=== PATIENT | male | born 1960 | race African-American/Black ===

== ENCOUNTER 2024-10-23 11:04 | Outpatient (AMB) | payer OTHER, SELFPAY ==
--- NOTE | 2024-10-23 11:06 | A.OFFVIS_ITS ---
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 The patient reports a history of lumbar disc herniation, which was identified following an incident at work involving bending and lifting in 2022. An MRI confirmed a disc bulge on the left side, leading to significant pain and inability to work. The patient has been experiencing chronic pain since the injury, which has been managed with physical therapy and pain management injections. However, the patient experienced an allergic reaction to the injections, characterized by itching, muscle contractions, and skin changes. The patient has been advised against further injections due to these adverse effects. The patient also has a history of arthritis, which contributes to his chronic pain. He has been prescribed various medications, including muscle relaxants and topical gels, to manage his symptoms. The patient reports that these medications provide some relief, although they cause dizziness, particularly when taken during the day. In addition to his musculoskeletal issues, the patient has a history of diabetes mellitus and hypertension. He is not currently on insulin therapy for diabetes. - Onset: Pain began following a work-related injury in 2022. - Quality: Described as severe and persistent. - Location: Primarily in the left thoracolumbar region with occasional radiation to the ribs. - Exacerbating factors: Bending, lifting, and sudden movements worsen the pain. - Relieving factors: Use of muscle relaxants and topical gels provides some relief. - Interference: Pain affects daily activities and ability to work. - Affect: Pain significantly impacts the patient's mood and quality of life. - Analgesia: Previously managed with muscle relaxants and topical gels but patient has run out of these medications; previous injections caused adverse reactions. - Adverse Effects: Dizziness from medications, allergic reaction to injections. - Activities of Daily Living: Pain limits ability to perform work and daily tasks. - Aberrant Drug Related Behaviors: No evidence of medication misuse or abuse reported. [facility] Medical History (Updated 10/23/24 @ 12:45 by Julia Martinez, PHONE MANAGER, RECRUITMENT COORDINATOR) Diabetes Hypertension Review of Systems Const Details: - Musculoskeletal: Reports chronic lumbar pain, exacerbated by movement. - Dermatological: Reports skin changes and itching following injections. - Neurological: Reports dizziness associated with medication use. Physical Exam Vital Signs: Last Vital Signs Pulse 67 10/23/24 11:09 Resp 16 10/23/24 11:09 BP 178/94 H 10/23/24 11:09 Pulse Ox 97 10/23/24 11:09 Oxygen Delivery Method Room Air 10/23/24 11:09 BMI result Body Mass Index 37.7 General: awake, alert, oriented. Answers questions appropriately. Fully engaged in examination. Skin: warm, dry, intact HEENT: Normocephalic. Hearing intact. Cardiac: External chest normal in appearance. Respiratory: No cough, audible wheezing or stridor. Abdomen: without gross distension. MS: No obvious swelling or deformities. Able to stand on bilateral tiptoes and bilateral heels.? Able to transition from sit to stand unassisted. Ambulates with bilaterally normal heel strike and toe off Tenderness in left thoracolumbar region, pain on forward bending, discomfort on twisting, and difficulty lifting objects. SLR negative bilaterally Nontender over bilateral PSIS Bilateral lower extremity strength 5/5 Neurological: Oriented to person, place, time and situation. Thought process intact. No gait abnormalities appreciated. Psychiatric: Appropriate mood and affect. Good judgment and insight. Results Reviewed Results Reviewed: Per patient's referral MRI from [place] showed small diffuse disc bulge at L4-5. Bilateral facet arthropathy L4-5 L5-S1. Records have been requested for review. Assessment & Plan Assessment & Plan (1) Degenerative disc disease, lumbar: Code(s): M51.369 - Other intervertebral disc degeneration, lumbar region without mention of lumbar back pain or lower extremity pain Category: Medical (2) L4-L5 disc bulge: Code(s): M51.369 - Other intervertebral disc degeneration, lumbar region without mention of lumbar back pain or lower extremity pain Category: Medical Plan The plan involves obtaining full medical records, including MRI results from [facility] and records from [facility], to better understand the patient's condition and previous treatments. The patient will be prescribed a lower dose of metocarbamol to reduce dizziness, and diclofenac gel will be continued for topical pain relief. Further injections are not recommended due to previous allergic reactions, and alternative pain management strategies will be explored. The patient is advised to avoid activities that exacerbate pain, such as heavy lifting and sudden movements. Follow-up appointments will be scheduled to monitor the patient's response to the adjusted medication regimen and to discuss further management options. I discussed with the patient the importance of obtaining complete medical records to assess his condition thoroughly. We reviewed the adverse effects of previous injections and agreed that further injections are not advisable. I explained the rationale for adjusting his medication regimen to minimize dizziness and enhance pain relief. We also discussed the need to avoid activities that could worsen his pain and the plan for follow-up appointments to evaluate his progress. Patient was informed and verbally consented to the use of an ambient scribe for clinic note documentation during this visit. Medications: New diclofenac sodium 1% (Arthritis Pain (diclofenac)) apply to single area of back twice daily as needed 4 grams topical BID 100 grams 3RF acetaminophen ER 650 mg PO Q12H PRN 60 tabs 1RF pain methocarbamol No driving while taking this medication. Do no take with alcohol or other C NS Depressants 500 mg PO TID PRN 90 tabs 1RF muscle spasm Patient Instructions: - Avoid heavy lifting and sudden movements to prevent worsening of pain. - Use diclofenac gel as directed for pain relief. - Take metocarbamol at the prescribed lower dose to reduce dizziness. - Schedule follow-up appointments to monitor progress and adjust treatment as needed. Coding Level of Care Code New Pt Level 4 (52911) Complex EM visit Add On G2211 Diagnoses Degenerative disc disease, lumbar M51.369 L4-L5 disc bulge M51.369
[2024-10-23 11:09] VITALS: BP 178/94; PULSE 67; RESP 16; O2SAT 97; BMI 37.7
--- OUTSIDE RECORDS SUMMARY | 2024-10-23 11:29 | XMS_ITS | Clinical Summary ---
Author Organization [facility] Address [address] [place] [address] Phone Care Team Providers Care Forest Engineer Name Role Phone Physician, Pcp Unknown Primary Care Provider Guerline vailable Allergies No known active allergies Medications dexAMETHasone (DECADRON) 4 mg tablet Take 1 tablet (4 mg total) by mouth 2 (two) times a day for 4 days. 8 each 5 Active acetaminophen (TYLENOL 8 HOUR) 650 mg 8 hr tablet Take 1 tablet (650 mg total) by mouth 3 times daily. 4 Active amLODIPine (NORVASC) 10 mg tablet Take 1 tablet (10 mg total) by mouth daily. 4 Active blood-glucose meter kit 1 each daily. 4 Active cetirizine (ZyrTEC) 10 mg tablet Take 1 tablet (10 mg total) by mouth 1 (one) time each day. 4 Active ezetimibe (ZETIA) 10 mg tablet Take 1 tablet (10 mg total) by mouth 1 (one) time each day. Active omeprazole (PriLOSEC) [address] capsule TAKE 1 CAPSULE BY MOUTH EVERY DAY IN THE MORNING BEFORE BREAKFAST STRENGTH: 20 MG Active rosuvastatin (CRESTOR) 10 mg tablet Take 1 tablet (10 mg total) by mouth 1 (one) time each day. 4 Active Encounters Date Type Department Care Team Description 09/17/2024 11:00 AM EDT Consult Orthopedic [facility] [place] [address] [place] [address] Leonor Tavares PA Subacromial bursitis of left shoulder joint (Primary Dx); Left shoulder pain; Rotator cuff tendinitis, left from Last 3 Months Social History Tobacco Use Types Packs/Day Years Used Date Smoking Tobacco: Never Assessed Sex and Gender Information Value Date Recorded Sex Assigned at Not on file Legal Sex Male 3:48 PM EST Gender Identity Not on file Sexual Orientation Not on file Last Filed Vital Signs Vital Sign Reading Time Taken Comments Blood Pressure 153/100 06/26/2024 12:22 PM EST Pulse 63 06/26/2024 12:22 PM EST Temperature 36.5 C (97.7 F) 06/26/2024 12:22 PM EST Respiratory Rate 16 09/17/2024 10:45 AM EDT Oxygen Saturation 99% 06/26/2024 12:22 PM EST Inhaled Oxygen Concentration - - Weight 110 kg (242 lb) 09/17/2024 10:45 AM EDT Height 170.2 cm (5' 7 ) 09/17/2024 10:45 AM EDT Body Mass Index 37.9 09/17/2024 10:45 AM EDT Plan of Treatment Health Maintenance Due Date Last Done Comments Diabetes: Annual Foot Exam 01/07/1972 Diabetes: Annual Retina Eye Exam 01/07/1972 RSV Immunization Adult Patients (1 - Risk 60-74 years 1-dose series) 2022 Colorectal Cancer Screening: Colonoscopy 07/12/2023 Hepatitis C Screening 07/12/2023 Social Influencers of Health Screening 07/12/2023 COVID-19 Vaccine ( season) 2024 05/04/2021, 09/21/2020, 08/31/2020 Diabetes: Blood Sugar Control Test (HGBA1C) 09/08/2024 03/11/2024 Diabetes: Annual Urine Albumin-Creatinine Ratio (uACR) 10/20/2024 10/21/2023 Influenza Vaccine (Season Ended) 2025 03/15/2022, 05/04/2021, 03/18/2020, Additional history exists Diabetes: Annual GFR (Glomerular Filtration Rate) 06/26/2025 06/26/2024, 03/11/2024 Hypertension/CHF/CAD Annual BMP Blood Test 06/26/2025 06/26/2024, 03/11/2024 Depression Screening 07/27/2025 07/27/2024 Cholesterol Screening (Lipid Panel) 03/11/2029 03/11/2024, 03/11/2024, 10/21/2023, Additional history exists DTaP,Tdap,and Td Vaccines (2 - Td or Tdap) 05/28/2029 05/28/2019 HIV Screening Completed 10/17/2018 Zoster Vaccines Completed 03/18/2020, 05/28/2019 Pneumococcal Vaccine: 50+ Years Completed 03/22/2023 Pneumococcal Vaccine: Pediatrics (0 to 5 Years) and At-Risk Patients (6 to 64 Years) Completed 03/22/2023 HIB Vaccines Aged Out No longer eligi ble based on patient's age to complete this topic HPV Vaccines Aged Out No longer eligi ble based on patient's age to complete this topic Hepatitis A Vaccines Aged Out No long er eligible based on patient's age to complete this topic Hepatitis B Vaccines Aged Out No long er eligible based on patient's age to complete this topic IPV Vaccines Aged Out No longer eligi ble based on patient's age to complete this topic MMR Vaccines Aged Out No longer eligi ble based on patient's age to complete this topic Meningococcal ACWY Vaccine Aged Out N o longer eligible based on patient's age to complete this topic Meningococcal B Vaccine Aged Out No l onger eligible based on patient's age to complete this topic RSV Immunization Patients Under 20 months Aged Out No longer eligible based on patient's age to complete this topic Varicella Vaccines Aged Out No longer eligible based on patient's age to complete this topic Procedures Procedure Name Priority Date/Time Associated Diagnosis Comments COMPREHENSIVE METABOLIC PANEL STAT 06/26/2024 7:32 AM EST from Last 3 Months or Most Recently Relevant to Health Maintenance Results * (ABNORMAL) Comprehensive metabolic panel (06/26/2024 7:32 AM EST) Sodium 139 133 - 145 mmol/L LAB CHEMISTRY METHOD 06/26/2024 8:17 AM EST [facility] Potassium 4.6 3.5 - 5.5 mmol/L LAB CHEMISTRY METHOD 06/26/2024 8:17 AM EST [facility] Chloride 105 96 - 110 mmol/L LAB CHEMISTRY METHOD 06/26/2024 8:17 AM [facility] CO2 27 21 - 32 mmol/L LAB CHEMISTRY METHOD 06/26/2024 8:17 AM [facility] Anion Gap 7 3 - 11 LAB CHEMISTRY METHOD 06/26/2024 8:17 AM [facility] Glucose 128(H) 70 - 100 mg/dL LAB CHEMISTRY METHOD 06/26/2024 8:17 AM [facility] BUN 12 5 - 25 mg/dL LAB CHEMISTRY METHOD 06/26/2024 8:17 AM [facility] Creatinine 1.49(H) 0.70 - 1.30 mg/dL LAB CHEMISTRY METHOD 06/26/2024 8:17 AM [facility] eGFR 53(L) >=60 mL/min/1. 73m2 LAB CHEMISTRY METHOD 06/26/2024 8:17 AM [facility] Comment:Calculation based on the Chronic Kidney Disease Epidemiology Collaboration (CKD-EPI) equation refit without adjustment for race. BUN/Creatinine Ratio 8.1 LAB CHEMISTRY METHOD 06/26/2024 8:17 AM [facility] Calcium 9.3 8.5 - 10.5 mg/dL LAB CHEMISTRY METHOD 06/26/2024 8:17 AM [facility] AST (SGOT) 21 10 - 42 unit/L LAB CHEMISTRY METHOD 06/26/2024 8:17 AM [facility] ALT (SGPT) 37 10 - 60 unit/L LAB CHEMISTRY METHOD 06/26/2024 8:17 AM [facility] Alkaline Phosphatase 57 42 - 121 unit/L LAB CHEMISTRY METHOD 06/26/2024 8:17 AM [facility] Total Protein 7.7 6.0 - 8.0 g/dL LAB CHEMISTRY METHOD 06/26/2024 8:17 AM [facility] Albumin 4.1 3.2 - 5.0 g/dL LAB CHEMISTRY METHOD 06/26/2024 8:17 AM EST [facility] Total Bilirubin 0.6 0.0 - 1.4 mg/dL LAB CHEMISTRY METHOD 06/26/2024 8:17 AM EST [facility] Blood Venous blood specimen / Unknown Venipuncture / Unknown 06/26/2024 7:32 AM EST 06/26/2024 7:41 AM EST us Chase Griffin MD LAB BLOOD ORDERABLES Final Res ult [facility] [address] [place] [address], from Last 3 Months or Most Recently Relevant to Health Maintenance Insurance [facility] [employer] Care Teams Forest Engineer Relationship Specialty Start Date End Date Physician, Pcp Unknown PCP - General 06/26/24
== END 2024-10-23 12:03 | disposition home or self-care (01) ==
LOC: HO.PMC 11:05
PROVIDERS: PCP Physician Assistant; Referring Provider Physician Assistant; Visit Provider Registered Nurse Emergency
DX: M51.369 Other intervertebral disc degeneration, lumbar region without mention of lumbar back pain or lower extremity pain (principal)
CPT/HCPCS: 99204; G2211

== ENCOUNTER → 2024-10-23 11:04 | Outpatient (BNVA) | payer OTHER, SELFPAY | PROVIDERS: PCP Physician Assistant; Referring Provider Physician Assistant; Visit Provider Registered Nurse Emergency | DX: M51.369 Other intervertebral disc degeneration, lumbar region without mention of lumbar back pain or lower extremity pain (principal) | CPT/HCPCS: 99202 ==

== ENCOUNTER 2024-12-04 12:41 | Outpatient (AMB) | payer OTHER, SELFPAY ==
--- OUTSIDE RECORDS SUMMARY | 2024-12-04 12:43 | XMS_ITS | Clinical Summary ---
Author Organization [facility] Address [address] [place] [address] Phone Care Team Providers Care Compliance Specialist Name Role Phone Diana Sultana Primary Care Provider [phone] Allergies Active Allergy Reactions Criticality Noted Date Comments Lisinopril 11/08/2024 Unknown?? Medications dexAMETHasone (DECADRON) 4 mg tablet Take [...] 1 (one) time each day. 4 Active lidocaine (XYLOCAINE) 2 % solution Take 10 mL by mouth 3 (three) times a day if needed for mild pain or moderate pain for up to 10 doses. 100 mL Active Active Problems No known active problems Encounters Date Type Department Care Team Description 11/08/2024 3:56 PM EDT - 11/08/2024 8:00 PM EDT Emergency [place] [facility] Emergency [address] [place] [address] Shruti Keita MD Acute pharyngitis, unspecified etiology (Primary Dx); Odynophagia Discharge Disposition: Home or Self Care 09/17/2024 11:00 AM EDT Consult Orthopedic Surgery - [place] [address] [place] [address] Leonor Tavares PA Subacromial bursitis [...] on file Sexual Orientation Not on file Obstetrics History Last Filed Vital Signs Vital Sign Reading Time Taken Comments Blood Pressure 140/94 11/08/2024 3:19 PM EDT Pulse 78 11/08/2024 3:19 PM EDT Temperature 36.8 C (98.2 F) 11/08/2024 3:19 PM EDT Respiratory Rate 20 11/08/2024 3:19 PM EDT Oxygen Saturation 99% 06/26/2024 12:22 PM EST Inhaled Oxygen Concentration - - Weight 111 kg (244 lb) 11/08/2024 3:19 PM EDT Height 170.2 cm (5' 7 ) 11/08/2024 3:19 PM EDT Body Mass Index 38.22 11/08/2024 3:19 PM EDT Plan of Treatment Health Maintenance Due Date Last Done Comments Diabetes: Annual Foot Exam 01/07/1972 Diabetes: Annual Retina Eye Exam 01/07/1972 RSV Immunization Adult Patients (1 - Risk 60-74 years 1-dose series) 2022 Colorectal Cancer Screening: Colonoscopy 07/12/2023 Hepatitis C Screening 07/12/2023 Social Influencers of Health Screening 07/12/2023 COVID-19 Vaccine ( season) 2024 05/04/2021, 09/21/2020, 08/31/2020 Depression Screening 05/06/2024 Influenza Vaccine (#1) 2025 2, 05/04/2021, 03/18/2020, Additional history exists Diabetes: Blood Sugar Control Test (HGBA1C) 04/04/2025 10/02/2024, 03/11/2024 Diabetes: Annual Urine Albumin-Creatinine Ratio (uACR) 10/02/2025 10/02/2024, 10/21/2023 Diabetes: Annual GFR (Glomerular Filtration Rate) 11/08/2025 11/08/2024, 10/02/2024, 06/26/2024, Additional history exists Hypertension/CHF/CAD Annual BMP Blood Test 11/08/2025 11/08/2024, 10/02/2024, 06/26/2024, Additional history exists DTaP,Tdap,and Td Vaccines (2 - Td or Tdap) 05/28/2029 05/28/2019 Cholesterol Screening (Lipid Panel) 10/02/2029 10/02/2024, 03/11/2024, 03/11/2024, Additional history exists HIV Screening Completed 10/17/2018 Zoster Vaccines Completed 03/18/2020, 05/28/2019 Pneumococcal Vaccine: 50+ Years Completed 03/22/2023 HIB Vaccines Aged Out No [...] Procedure Name Priority Date/Time Associated Diagnosis Comments CT NECK SOFT TISSUE W CONTRAST STAT 11/08/2024 6:11 PM EDT CULTURE THROAT STAT 11/08/2024 4:48 PM EDT RAPID STREP A SCREEN STAT 11/08/2024 4:48 PM EDT CBC WITH AUTO DIFFERENTIAL STAT 11/08/2024 4:43 PM EDT BASIC METABOLIC PANEL STAT 11/08/2024 4:43 PM EDT CBC AND DIFFERENTIAL STAT 11/08/2024 4:43 PM EDT TRIIODOTHYRONINE TOTAL STAT 4:43 PM EDT THYROXINE FREE STAT 11/08/2024 4:43 PM EDT THYROID STIMULATING HORMONE STAT 11/08/2024 4:43 PM EDT from Last 3 Months Results * CT Neck Soft Tissue w Contrast (11/08/2024 6:11 PM EDT) Anatomical Region Laterality Modality Head and Neck Computed Tomogra phy 11/08/2024 7:00 PM EDT Impressions 11/08/2024 7:00 PM EDT 1. Nasopharyngeal edema and enhancement, likely inflammatory. No abscess. 2. Asymmetric fullness in the right base of the tongue. Recommend follow-up with ENT for direct visualization. 3. Left parotid gland is slightly larger than the right but otherwise within normal limits. This document has been electronically signed by: Isabel Pearson MD on 11/08/2024 19:00:10 Narrative 11/08/2024 7:00 PM EDT INDICATION: left sided neck swelling, now painful, former smoker CT soft tissue neck with contrast Comparison: None provided Findings: Nasopharyngeal edema and enhancement. Asymmetric fullness in the right base of the tongue. The left parotid gland is slightly larger than the right but otherwise within normal limits. The visualized intracranial contents are unremarkable. Epiglottis and larynx are within normal limits. No enlarged cervical lymph nodes. Submandibular and thyroid glands are within normal limits. Visualized lung apices are clear. No acute fractures. Degenerative changes of the spine. Procedure Note Isabel Pearson MD - 11/08/2024 INDICATION: left sided neck swelling, now painful, former smoker CT soft tissue neck with contrast Comparison: None provided Findings: Nasopharyngeal edema and enhancement. Asymmetric fullness in the right base of the tongue. The left parotid gland is slightly larger than the right but otherwise within normal limits. The visualized intracranial contents are unremarkable. Epiglottis and larynx are within normal limits. No enlarged cervical lymph nodes. Submandibular and thyroid glands are within normal limits. Visualized lung apices are clear. No acute fractures. Degenerative changes of the spine. IMPRESSION: 1. Nasopharyngeal edema and enhancement, likely inflammatory. Noabscess. 2. Asymmetric fullness in the right base of the tongue. Recommend follow-up with ENT for direct visualization. 3. Left parotid gland is slightly larger than the right but otherwise within normal limits. This document has been electronically signed by: Isabel Pearson MD on 11/08/2024 19:00:[address] PROCEDURES Fin al Result * Rapid Strep A Screen (11/08/2024 4:48 PM EDT) Strep A Ag Negative Negative, Invalid 11/08/2024 5:54 PM EDT [facility] Comment:Refer to Throat Cult ure. Swab Structure of anterior portion of neck / Unknown Non-blood Collection / Unknown 11/08/2024 4:48 PM EDT 11/08/2024 5:39 PM EDT [employer] [facility] LAB MICROBIOLOGY - GE NERAL ORDERABLES Final Result [facility] [address] [place] [address], [place] [phone] * Culture throat (11/08/2024 4:48 PM EDT) Pathologist [facility] Culture, Throat No pathogens isolated. 11/11/2024 10:33 AM EDT [facility] Swab Structure of anterior portion of neck / Unknown Non-blood Collection / Unknown 11/08/2024 4:48 PM EDT 11/08/2024 5:39 PM EDT us Yomaira [facility] LAB MICROBIOLOGY - GE NERAL ORDERABLES Final Result [facility] [address] [place] [address], * CBC auto differential (11/08/2024 4:43 PM EDT) [facility] WBC 6.7 4.8 - 10.8 K/mcL LAB HEMETOLOGY METHOD 11/08/2024 5:43 PM EDT [facility] RBC 5.20 4.50 - 5.50 M/[facility] LAB HEMETOLOGY METHOD 11/08/2024 5:43 PM EDT [facility] Hemoglobin 14.8 13.5 - 17.5 g/dL LAB HEMETOLOGY METHOD 11/08/2024 5:43 PM EDT [facility] Hematocrit 45.7 42.0 - 54.0 % LAB HEMETOLOGY METHOD 11/08/2024 5:43 PM EDT [facility] MCV 88.2 79.0 - 98.0 FL LAB HEMETOLOGY METHOD 11/08/2024 5:43 PM EDT [facility] MCH 28.6 27.0 - 32.0 pcg LAB HEMETOLOGY METHOD 11/08/2024 5:43 PM EDT [facility] MCHC 32.4 32.0 - 37.0 g/dL LAB HEMETOLOGY METHOD 11/08/2024 5:43 PM EDT [facility] RDW 12.8 11.0 - 15.0 % LAB HEMETOLOGY METHOD 11/08/2024 5:43 PM EDT [facility] Platelets 283 130 - 400 K/mcL LAB HEMETOLOGY METHOD 11/08/2024 5:43 PM EDT [facility] MPV 10.1 7.0 - 11.0 FL LAB HEMETOLOGY METHOD 11/08/2024 5:43 PM EDT [facility] NRBC 0.0 <1.0 % LAB HEMETOLOGY METHOD 11/08/2024 5:43 PM EDT [facility] NRBC Absolute 0.00 <0.10 K/mcL LAB HEMETOLOGY METHOD 11/08[facility]2024 5[facility] Neutrophils Relative 63.6 % LAB HEMETOLOGY METHOD 11/08/2024 5:43 PM EDT [facility] Lymphocytes Relative 24.4 % LAB HEMETOLOGY METHOD 11/08/2024 5:[facility] Monocytes Relative 9.4 % LAB HEMETOLOGY METHOD 11/08/2024 5:[facility] Eosinophils Relative 1.9 % LAB HEMETOLOGY METHOD 11/08/2024 5:43 [facility] Basophils Relative 0.4 % LAB HEMETOLOGY METHOD 11/08/2024 5:43 PM EDT [facility] Immature Granulocytes Relative 0.3 % LAB HEMETOLOGY METHOD 11/08/2024 5:43 PM EDT [facility] Neutrophils Absolute 4.23 1.50 - 7.00 K/mcL LAB HEMETOLOGY METHOD 11/08/2024 5:[facility] Lymphocytes Absolute 1.63 1.00 - 5.00 K/mcL LAB HEMETOLOGY METHOD 11/08/2024 5:43 PM EDT [facility] Monocytes Absolute 0.63 0.20 - 1.00 K/mcL LAB HEMETOLOGY METHOD 11/08/2024 5:43 PM EDT [facility] Eosinophils Absolute 0.13 0.00 - 0.50 K/mcL LAB HEMETOLOGY METHOD 11/08/2024 5:43 PM EDT [facility] Basophils Absolute 0.03 0.00 - 0.20 K/[facility] HEMETOLOGY METHOD 11/08/2024 5:43 PM EDT [facility] Immature Granulocytes Absolute 0.02 0.00 - 0.03 K/[facility] HEMETOLOGY METHOD 11/08/2024 5:43 PM EDT [facility] Blood Venous blood specimen / Unknown Venipuncture / Unknown 11/08/2024 4:43 PM EDT 11/08/2024 5:40 PM EDT [employer] Demetri[facility] LAB BLOOD ORDERABLES Final Result [facility] [address] [place] [address], [place] [phone] * T3 (11/08/2024 4:43 PM EDT) T3, Total 103.11 60.00 - 181.00 ng/dL LAB CHEMISTRY METHOD 11/08/2024 6:18 PM EDT [facility] Blood Venous blood specimen / Unknown Venipuncture / Unknown 11/08/2024 4:43 PM EDT 11/08/2024 5:40 PM EDT [facility] Demetrius PA LAB BLOOD ORDERABLES Final Result [facility] [address] [place] [address], [place] [phone] * Thyroid Stimulating Hormone (TSH) (11/08/2024 4:43 PM EDT) Pathologist [facility] TSH 3.12 0.40 - 4.00 mcIU/mL LAB CHEMISTRY METHOD 11/08/2024 6:19 PM EDT [facility] Blood Venous blood specimen / Unknown Venipuncture / Unknown 11/08/2024 4:43 PM EDT 11/08/2024 5:40 PM EDT [facility] [place] LAB BLOOD ORDERABLES Final Result Performing Organization Address City/[facility]/ZIP Co de Phone Number [facility] [address] [place] [address], [place] [phone] * T4, Free (11/08/2024 4:43 PM EDT) [facility] Free T4 1.37 0.70 - 1.80 ng/dL LAB CHEMISTRY METHOD 11/08/2024 6:18 PM EDT [facility] Blood Venous blood specimen / Unknown Venipuncture / Unknown 11/08/2024 4:43 PM EDT 11/08/2024 5:40 PM EDT [facility] LAB BLOOD ORDERABLES Final Result [facility] [address] [place] [address], [place] [phone] * (ABNORMAL) Basic Metabolic Panel (BMP) (11/08/2024 4:43 PM EDT) [facility] Sodium 138 133 - 145 mmol/L LAB CHEMISTRY METHOD 11/08/2024 6:02 PM EDT [facility] Potassium 4.8 3.5 - 5.5 mmol/L LAB CHEMISTRY METHOD 11/08/2024 6:02 PM EDT [facility] Chloride 105 96 - 110 mmol/L LAB CHEMISTRY METHOD 11/08/2024 6:02 PM [facility] CO2 30 21 - 32 mmol/L LAB CHEMISTRY METHOD 11/08/2024 6:02 PM [facility] Anion Gap 3 3 - 11 LAB CHEMISTRY METHOD 11/08/2024 6:02 PM [facility] Glucose 109(H) 70 - 100 mg/dL LAB CHEMISTRY METHOD 11/08/2024 6:02 PM [facility] BUN 13 5 - 25 mg/dL LAB CHEMISTRY METHOD 11/08/2024 6:02 PM [facility] Creatinine 1.50(H) 0.70 - 1.30 mg/dL LAB CHEMISTRY METHOD 11/08/2024 6:02 PM [facility] eGFR 52(L) >=60 mL/min/1. 73m2 LAB CHEMISTRY METHOD 11/08/2024 6:02 PM [facility] Comment:Calculation based on the Chronic Kidney Disease Epidemiology Collaboration (CKD-EPI) equation refit without adjustment for race. BUN/Creatinine Ratio 8.7 LAB CHEMISTRY METHOD 11/08/2024 6:02 PM [facility] Calcium 9.4 8.5 - 10.5 mg/dL LAB CHEMISTRY METHOD 11/08/2024 6:02 PM [facility] Blood Venous blood specimen / Unknown Venipuncture / Unknown 11/08/2024 4:43 PM EDT 11/08/2024 5:40 PM EDT Yomaira CHAVIRA LAB BLOOD ORDERABLES Final Result [facility] [address] [place] [address], [place] [phone] from Last 3 Months Insurance [employer] Care Teams Compliance Specialist Relationship Specialty Start Date End Date Diana Sultana PA [address] [place] [address] PCP - General Physician Hvac Operations Technician 11/08/24
[2024-12-04 12:46] VITALS: BP 158/90; PULSE 66; RESP 16; O2SAT 98; BMI 37.4
--- NOTE | 2024-12-04 12:46 | MHC.OFFVIS ---
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 He finds some relief through leaning and stretching. The patient has a history of sacroiliac joint dysfunction, previously treated at [facility] pain management with injections that provided only short-term relief. Further injections were avoided due to an allergic reaction, likely to the steroid used. He is currently managing his pain with medication, which he finds beneficial, and has been prescribed refills. Physical therapy has been ordered but was delayed due to insurance issues. - Onset: Chronic, persistent pain - Quality: Exacerbated by bending and lifting - Location: Lower back - Relieving factors: Leaning and stretching - Affect: Pain impacts daily activities, requiring adjustments at work - Analgesia: Pain managed with medication, refills provided - Adverse Effects: Allergic reaction to steroid injections - Activities of Daily Living: Pain affects ability to perform work duties, necessitating light duty - Aberrant Drug Related Behaviors: None reported [facility] Medical History (Updated 12/04/24 @ 14:34 by Julia Martinez, FRONT DESK TEAM MEMBER, STEAM CONDITIONING OPERATOR) Diabetes Hypertension Review of Systems Const Details: - Musculoskeletal: Reports chronic low back pain, exacerbated by bending and lifting - Dermatological: Reports skin changes following steroid injections Physical Exam Exam Exam: General: awake, alert, oriented. Answers questions appropriately. Fully engaged in examination. Skin: warm, dry, intact HEENT: Normocephalic. Hearing intact. Cardiac: External chest normal in appearance. Respiratory: No cough, audible wheezing or stridor. Abdomen: without gross distension. MS: No obvious swelling or deformities. Neurological: Oriented to person, place, time and situation. Thought process intact. No gait abnormalities appreciated. Psychiatric: Appropriate mood and affect. Good judgment and insight. Vital Signs: Last Vital Signs Pulse 66 12/04/24 12:46 Resp 16 12/04/24 12:46 BP 158/90 H 12/04/24 12:46 Pulse Ox 98 12/04/24 12:46 Oxygen Delivery Method Room Air 12/04/24 12:46 BMI result Body Mass Index 37.4 Results Reviewed Results Reviewed: Per patient's referral MRI from [place] showed small diffuse disc bulge at L4-5. Bilateral facet arthropathy L4-5 L5-S1. Records have been requested for review. Assessment & Plan Assessment & Plan (1) Degenerative disc disease, lumbar: Code(s): M51.369 - Other intervertebral disc degeneration, lumbar region without mention of lumbar back pain or lower extremity pain Category: Medical (2) L4-L5 disc bulge: Code(s): M51.369 - Other intervertebral disc degeneration, lumbar region without mention of lumbar back pain or lower extremity pain Category: Medical Plan The patient will maintain his current pain medication regimen, which has been effective in symptom management. Physical therapy has been ordered to aid in managing chronic low back pain, focusing on non-exacerbating exercises. Patient requesting physical therapy order be sent to [facility] in [place] due to proximity to his home. Injections for the lower back may be reconsidered, with caution due to previous allergic reactions to steroids. He is advised to continue light duty work to avoid symptom aggravation and to take breaks as needed. A follow-up is recommended in a few months to reassess his condition and adjust the treatment plan accordingly. If pain returns or worsens patient was advised to follow up in the office so we can repeat MRI. Patient was informed and verbally consented to the use of an ambient scribe for clinic note documentation during this visit. Orders: Orders PT Evaluation and Treatment Today M51.369 - Other intervertebral disc degeneration, lumbar region without mention of lumbar back pain or lower extremity pain, M54.50 - Low back pain, unspecified Medications: Refilled methocarbamol No driving while taking this medication. Do no take with alcohol or other SANITIZER Depressants 500 mg PO TID PRN 90 tabs 3RF muscle spasm Patient Instructions: - Continue taking prescribed pain medication as directed. - Begin physical therapy as ordered, focusing on exercises that do not worsen your pain. - Maintain light duty work and take breaks to avoid aggravating your symptoms. - Follow up in a few months or sooner if symptoms worsen. Coding Level of Care Code Est Pt Level 3 (36084) Complex EM visit Add On G2211 Diagnoses Degenerative disc disease, lumbar M51.369 L4-L5 disc bulge M51.369
== END 2024-12-04 13:23 | disposition home or self-care (01) ==
LOC: HO.PMC 12:41
PROVIDERS: PCP Physician Assistant; Visit Provider Registered Nurse Emergency
DX: M51.369 Other intervertebral disc degeneration, lumbar region without mention of lumbar back pain or lower extremity pain (principal)
CPT/HCPCS: 99213

== ENCOUNTER → 2024-12-04 12:41 | Outpatient (BNVA) | payer OTHER, SELFPAY | PROVIDERS: PCP Physician Assistant; Visit Provider Registered Nurse Emergency | DX: M54.50 Low back pain, unspecified (principal); M51.369 Other intervertebral disc degeneration, lumbar region without mention of lumbar back pain or lower extremity pain | CPT/HCPCS: 99212 ==